=== PATIENT | male | born 2000 | race American Indian/Alaskan Native ===

== ENCOUNTER 2020-05-27 20:25 | Emergency (ER) | payer MEDICAID ==
--- NOTE | 2020-05-27 21:06 | Event Note ---
ED Screening Note Date of service: 05/27/20 Time: 21:03 ED Screening Note: 19 y o f presents with cc of dizziness and feeling exessive thirst This initial assessment/diagnostic orders/clinical plan/treatment(s) is/are subject to change based on patients health status, clinical progression and re- assessment by fellow clinical providers in the ED. Further treatment and workup at subsequent clinical providers discretion. Patient/guardian urged not to elope from the ED as their condition may be serious if not clinically assessed and managed. Initial orders include: labs, ekg
[2020-05-27 21:07] VITALS: BP 126/67
[2020-05-27 21:44] LABS: Alanine Aminotransferase 18 units/L (7-56); Albumin 4.2 g/dL (3.9-5); BUN/Creatinine Ratio 10; Blood Urea Nitrogen 12 mg/dL (9-20); Calcium 9.5 mg/dL (8.4-10.2); Hemolysis Index 24
[2020-05-27 21:46] LABS: Eosinophils % (Auto) 3.6 % (0.0-4.3); Monocytes % (Auto) 9.4 % (0.0-7.3)
[2020-05-27 21:50] LABS: Basophils # (Auto) 0.1 K/mm3 (0.0-0.1); Eosinophils # (Auto) 0.3 K/mm3 (0.0-0.4); Monocytes # (Auto) 0.8 K/mm3 (0.0-0.8)
[2020-05-27 22:09] LABS: Hematocrit 45.7 % (35.5-45.6); Hemoglobin 16.5 gm/dl (11.8-15.2); Lymphocytes % (Auto) 21.5 % (13.4-35.0); Mean Corpuscular HGB Conc 36 % (32-34); Mean Corpuscular Volume 95 fl (84-94); Platelet Count 178 K/mm3 (140-440); Red Blood Count 4.83 M/mm3 (3.65-5.03); Red Cell Distribution Width 13.7 % (13.2-15.2)
[2020-05-27 22:10] LABS: Basophils % (Auto) 0.7 % (0.0-1.8); Lymphocytes # (Auto) 1.7 K/mm3 (1.2-5.4)
[2020-05-28] MEDS ORDERED: FAMOTIDINE 20 MG TAB PO ONE (00:31)
[2020-05-28] MEDS ORDERED: ONDANSETRON 4 MG ODT TAB PO ONE (00:31)
[2020-05-28 01:10] LABS: Bilirubin,Urine NEG (Negative); Blood,Urine NEG (Negative); Color,Urine Yellow (Yellow); Urobilinogen,Urine < 2.0 mg/dL (<2.0)
--- NOTE | 2020-05-28 02:21 | Emergency Department Report ---
ED General Adult HPI - General Chief complaint: Dizziness Stated complaint: DIZZINESS/BODY ACHES Source: patient Mode of arrival: Ambulatory Limitations: No Limitations - History of Present Illness Initial comments: Patient is a 19-year-old -[place] male with a history of bipolar disorder, ADHD, anxiety and depression who presents to the ED with complaint of acute onset persistent lightheadedness intermittently with mild epigastric discomfort, nausea and penile rash for the last 1 week. Patient states that he had an unprotected sexual intercourse with another female a week ago and also in the last 2 days. Patient states that the rash is itchy and painful and is a burning sensation. Patient denies fever, chills, penile discharge, urinary frequency and urgency, dysuria, low back pain, abdominal pain, vomiting, chest pain or shortness of breath, hematuria, sore throat or change in vision and syncope. MD Complaint: penile rashes; lightheadedness; epigastric pain -: Sudden, week(s) (1) Location: mouth, genitals Radiation: non-radiation Severity scale (0 -10): 2 Quality: aching, sharp Consistency: constant Improves with: none Worsens with: none Associated Symptoms: denies other symptoms, loss of appetite, malaise, rash (penile). denies: confusion, chest pain, cough, fever/chills, headaches, nausea/vomiting, seizure, shortness of breath, syncope, weakness Treatments Prior to Arrival: none - Related Data Previous Rx's Medication Instructions Recorded Last Taken Type Doxycycline Hyclate 100 mg PO Q12H #20 tablet. 05/28/20 Unknown Rx Ibuprofen [Motrin] 600 mg PO Q8H PRN #20 tablet 05/28/20 Unknown Rx Ondansetron [Zofran Odt] 4 mg PO Q6HR PRN #12 tab.rapdis 05/28/20 Unknown Rx Allergies Allergy/AdvReac Type Severity Reaction Status Date / Time No Known Allergies Allergy Unverified 06/29/16 12:32 ED Review of Systems ROS: Stated complaint: DIZZINESS/BODY ACHES Other details as noted in HPI Constitutional: denies: chills, fever Eyes: denies: eye pain, eye discharge, vision change ENT: throat pain. denies: ear pain Respiratory: cough. denies: shortness of breath, wheezing Cardiovascular: denies: chest pain, palpitations Endocrine: no symptoms reported Gastrointestinal: abdominal pain (epigastric discomfort), nausea. denies: diarrhea Genitourinary: other (penile itchy painful rashes). denies: urgency, dysuria Musculoskeletal: denies: back pain, joint swelling, arthralgia Skin: denies: rash, lesions Neurological: denies: headache, weakness, paresthesias Psychiatric: anxiety. denies: depression Hematological/Lymphatic: denies: easy bleeding, easy bruising ED Past Medical Hx - Past Medical History Hx Psychiatric Treatment: Yes (Anxiety; ADHD; Depression; Bipolar ) Hx Asthma: Yes - Social History Smoking Status: Current Every Day Smoker Substance Use Type: None - Medications Home Medications: Home Medications Medication Instructions Recorded Confirmed Last Taken Type Doxycycline Hyclate 100 mg PO Q12H #20 tablet.dr 05/28/20 Unknown Rx Ibuprofen [Motrin] 600 mg PO Q8H PRN #20 tablet 05/28/20 Unknown Rx Ondansetron [Zofran Odt] 4 mg PO Q6HR PRN #12 tab.rapdis 05/28/20 Unknown Rx ED Physical Exam - General Limitations: No Limitations General appearance: alert, in no apparent distress - Head Head exam: Present: atraumatic, normocephalic, normal inspection - Eye Eye exam: Present: normal appearance, PERRL, EOMI Pupils: Present: normal accommodation - ENT ENT exam: Present: normal exam, normal orophraynx, mucous membranes moist, TM's normal bilaterally, normal external ear exam - Neck Neck exam: Present: normal inspection, full ROM - Respiratory Respiratory exam: Present: normal lung sounds bilaterally. Absent: respiratory distress, wheezes, rhonchi, chest wall tenderness, decreased breath sounds, prolonged expiratory - Cardiovascular Cardiovascular Exam: Present: regular rate, normal rhythm, normal heart sounds. Absent: systolic murmur, diastolic murmur, rubs, gallop - GI/Abdominal GI/Abdominal exam: Present: soft, normal bowel sounds. Absent: tenderness, guarding, hyperactive bowel sounds, hypoactive bowel sounds, organomegaly - exam: Present: circumcision, other (mildly erythematous rashes on penile shaft ) External exam: Present: normal external exam, other (Male varnish melter present; mildly erythematous rash on penile shaft) - Extremities Exam Extremities exam: Present: normal inspection, full ROM, normal capillary refill - Back Exam Back exam: Present: normal inspection, full ROM. Absent: tenderness, CVA tend erness (R), CVA tenderness (L), muscle spasm, paraspinal tenderness - Neurological Exam Neurological exam: Present: alert, oriented X3, CN II-XII intact, normal gait, reflexes normal - Psychiatric Psychiatric exam: Present: normal affect, normal mood, anxious - Skin Skin exam: Present: warm, dry, intact, normal color. Absent: rash ED Course Vital Signs 05/27/20 21:02 Temperature 99.6 F Pulse Rate 96 H Respiratory 18 Rate Blood Pressure 126/67 O2 Sat by Pulse 100 Oximetry ED Medical Decision Making - Lab Data Result diagrams: 05/27/20 21:11 05/27/20 21:11 - Medical Decision Making This is a 19-year-old -[place] male with a history of bipolar disorder, ADHD, anxiety and depression who presents to the ED with complaint of acute onset persistent lightheadedness intermittently with mild epigastric discomfort, nausea and penile rash for the last 1 week. Patient states that he had an unprotected sexual intercourse with another female a week ago and also in the last 2 days. Patient states that the rash is itchy and painful and is a burning sensation. In the ED, patient is alert and oriented x3 and is not in distress. Lab test results were reviewed and are all nonactionable. Patient was discharged home on medications advised to follow-up with his primary care physician in 5 to 7 days for reevaluation. Patient was also advised to consider following up with the [facility] for further STD testing such as HIV and syphilis. Patient was advised return to the ED immediately if symptoms get worse. - Differential Diagnosis folliculitis; abscess; genital herpes; STD Critical care attestation.: If time is entered above; I have spent that time in minutes in the direct care of this critically ill patient, excluding procedure time. ED Disposition Clinical Impression: Acute folliculitis Disposition: DC-01 TO HOME OR SELFCARE Is pt being admited?: No Does the pt Need Aspirin: No Condition: Stable Instructions: Folliculitis (ED) Additional Instructions: Take medication with food, drink plenty of fluids and follow-up with your primary care physician in 5 to 7 days for reevaluation. Consider following up with [facility] for STD testing such as HIV and syphilis. Return to the ED immediately if symptoms get worse. Prescriptions: Doxycycline Hyclate 100 mg PO Q12H #20 tablet. Ibuprofen [Motrin] 600 mg PO Q8H PRN #20 tablet PRN Reason: Pain Ondansetron [Zofran Odt] 4 mg PO Q6HR PRN #12 tab.rapdis PRN Reason: Nausea Referrals: [facility] Depart [Outside] - 3-5 Days Time of Disposition: 02:21 Print Language: ROMANIAN
== END 2020-05-28 02:30 | disposition home or self-care (01) ==
LOC: ED 20:25
DX: L73.9 Follicular disorder, unspecified (principal); F41.9 Anxiety disorder, unspecified; F31.9 Bipolar disorder, unspecified; J45.909 Unspecified asthma, uncomplicated; F17.200 Nicotine dependence, unspecified, uncomplicated; Z79.899 Other long term (current) drug therapy
CPT/HCPCS: 36415; 80053; 81001; 85025; 93005; 99283; Q0162